=== PATIENT | female | born 1960 | race Hispanic/Latino ===

== ENCOUNTER 2020-03-13 11:50 | Inpatient (IN) | payer BC ==
[~2020-03-13 11:50] MED LIST: Iopamidol-370 76% 500 ML 1 ML ONE
[2020-03-13] MEDS ORDERED: cefTRIAXone\\ROCEPHIN 2 GM VIAL ONE (12:23)
[2020-03-13] MEDS ORDERED: Ondansetron PF 4 MG/2 ML Vial ONE (12:23)
[2020-03-13] MEDS ORDERED: Sodium Chloride 0.9% 100 ML ONE (12:24)
[2020-03-13] MEDS ORDERED: Azithromycin 500 MG VIAL ONE (12:26)
[2020-03-13] MEDS ORDERED: Dexamethasone 10 MG/ML VIAL ONE (12:26)
[2020-03-13 12:35] LABS: #Basophils 0.1 thou/uL (0.0-0.2); #Eosinphils 0.1 thou/uL (0.0-0.7); #Lymphocytes 2.8 thou/uL (1.20-3.40); #Monocytes 0.6 thou/uL (0.11-0.59); #Neutrophils 10.1 thou/uL (1.40-6.50); %Basophils 0.5 % (0.0-1.0); %Eosinophils 0.5 % (0.0-10.0); %Lymphocytes 20.2 % (21.0-51.0); %Monocytes 4.4 % (0.0-10.0); %Neutrophils 74.4 % (42.0-75.0); Hemoglobin 17.1 g/dL (12.0-16.0); Mean Corpuscular HGB CONC 34.8 g/dL (32.0-36.0); Mean Corpuscular Hemoglobin 31.9 pg (27.0-31.0); Mean Corpuscular Volume 91.5 fL (78.0-98.0); Mean Platelet Volume 9.1 fL (7.4-10.4); Platelet Count 347 thou/uL (130-400); RBC Distribution Width 11.3 % (11.5-14.5); Red Blood Cell (RBC) Count 5.37 mill/uL (4.20-5.40); White Blood Cell (WBC) Count 13.6 thou/uL (4.8-10.8)
[2020-03-13] MEDS ORDERED: Acetaminophen 500 MG TAB ONE (12:52)
[2020-03-13 12:56] LABS: ALT (SGPT) 16 U/L (8-55); AST (SGOT) 24 U/L (5-34); Albumin 3.5 g/dL (3.5-5.0); Alkaline Phosphatase 111 U/L (40-110); Anion Gap 25 mmol/L (10-20); BUN (Urea Nitrogen) 15 mg/dL (9.8-20.1); Bilirubin, Total 0.6 mg/dL (0.2-1.2); CK (CPK) 18 U/L (29-168); Calc. Creatinine Clearance 0 mL/min (70-130); Calcium 9.3 mg/dL (7.8-10.44); Carbon Dioxide 21 mmol/L (22-29); Chloride 94 mmol/L (98-107); Estimated GFR-MDRD 71; Globulin 5.4 g/dL (2.4-3.5); Glucose 354 mg/dL (70-105); Lipase 50 U/L (8-78); Protein, Total 8.9 g/dL (6.0-8.3); Sodium 136 mmol/L (136-145)
--- NOTE | 2020-03-13 12:59 | RAD ---
Frontal radiograph chest: 03/13/2020 COMPARISON: None HISTORY: Cough and shortness of breath with generalized weakness FINDINGS: Prominent extensive bilateral interstitial and alveolar/ground glass opacity. No pneumothor ax, lobar consolidation, or alveolar edema. IMPRESSION: Nonspecific diffuse interstitial and alveolar opacity/groundglass opacity. Findings are s uspicious for Covid pneumonia/atypical infectious pneumonitis in the proper clinical setting.
[2020-03-13] MEDS ORDERED: Dextrose 5% in Water 1,000 ML IV PRN (14:10)
[2020-03-13] MEDS ORDERED: Dextrose 50% Abboject 50 ML SYRINGE SLOW IVP PRN (14:10)
[2020-03-13] MEDS ORDERED: Ondansetron PF 4 MG/2 ML Vial IVP PRN (14:10)
--- NOTE | 2020-03-13 14:32 | CT ---
CT angiogram chest: 03/13/2020 COMPARISON: None HISTORY: Recent chest radiograph demonstrates findings consistent with diffuse Covid pneumonia. Cough with shortness of breath TECHNIQUE: Axial CT imaging at 2.5 mm intervals through the chest with IV contrast using CT angiogram protocol. Coronal and sagittal 3-D reformatted imaging obtained FINDINGS: Imaged upper abdomen grossly unremarkable. No pleural, pericardial, or mediastinal fluid. S ubcarinal adenopathy measures 1.5 cm. Right hilar adenopathy measures 1 cm. No evidence for acute pulmonary arterial embolism. Extensive interstitial and alveolar/ground glass opacity noted throughout both lungs. No acute osseou s abnormality. IMPRESSION: Extensive nonspecific severe interstitial and alveolar opacity throughout both lungs high ly suspicious for Covid pneumonia in the proper clinical setting. Short-term follow-up imaging of the chest following treatment advised. No evidence for pulmonary arterial embolism.
[2020-03-13 14:46] LABS: SARS-CoV-2 NAA Rapid Test DETECTED (NotDetected)
[2020-03-13 15:26] LABS: Lactic Acid 1.1 mmol/L (0.5-2.2)
[2020-03-13 15:39] LABS: Troponin I 0.026 ng/mL (< 0.028)
--- NOTE | 2020-03-13 15:45 | HP ---
REASON FOR ADMISSION: COVID-19 pneumonia, acute respiratory failure with hypoxia. HISTORY OF PRESENTING ILLNESS: The patient gives history of having dry coughing spells and feeling nauseous on Sunday. She lives with her . Her was not sick. This progressively got worse and patient also developed diarrhea. She is having perfuse watery diarrhea as soon as she eats. There was no blood in it. There was no nausea or vomiting, but patient was exhausted, having diarrhea, and did not want to eat. As her shortness of breath got worse and she found herself difficult to ambulate in the house, patient called EMS and was brought here. On arrival, patient had CT angio and chest x-ray done which showed bilateral infiltrates and a COVID-19 PCR rapid test is positive. Has had mild fevers at home. PAST MEDICAL AND SURGICAL HISTORY: History of diabetes mellitus type 2, mild hypertension, obesity. No prior surgical history per patient. CURRENT MEDICATIONS: Patient does not recall her medications and we will try to obtain from her pharmacy shortly. ALLERGIES: NO KNOWN DRUG ALLERGIES. PERSONAL HISTORY: Does not abuse alcohol or drugs. No history of smoking. FAMILY HISTORY: No history of cancer in the family. CODE STATUS: Full. Power of city attorney is her . REVIEW OF SYSTEMS: CONSTITUTIONAL: Negative for weight loss or gain, ability to conduct usual activities. SKIN: Negative for rash, itching. EYES: Negative for double vision, pain. ENT/MOUTH: Negative for nose bleeding, neck stiffness, pain, tenderness. CARDIOVASCULAR: Negative for palpitations, dyspnea on exertion, orthopnea. RESPIRATORY: Negative for shortness of breath, wheezing, cough, hemoptysis, fever or night sweats. GASTROINTESTINAL: Negative for poor appetite, abdominal pain, heartburn, nausea, vomiting, constipation, or diarrhea. GENITOURINARY: Negative for urgency, frequency, dysuria, nocturia. MUSCULOSKELETAL: Negative for pain, swelling. NEUROLOGIC/PSYCHIATRIC: Negative for anxiety, depression. ALLERGY/IMMUNOLOGIC: Negative for skin rash, bleeding tendency. PHYSICAL EXAMINATION: GENERAL: Patient is a 59-year-old female, who is currently not in any acute distress and is tolerating high-flow oxygen. VITAL SIGNS: Blood pressure 160/100, pulse 116 per minute, respiratory rate 24 per minute, temperature 98.9 degrees Fahrenheit. She was saturating 88% on room air and is 100% on high-flow. NECK: Supple. No elevated JVD. HEENT: Eyes; extraocular muscles intact. Pupils reacting to light. Oral cavity, mucous membranes are dry. No exudates or congestion. CARDIOVASCULAR: S1, S2 heard. Tachycardic. No murmur. RESPIRATORY: Air entry 1+ bilateral. Coarse rales plus bilateral. Rhonchi plus bilateral. No wheezes. ABDOMEN: Soft. Bowel sounds heard. No tenderness, rigidity, or guarding. EXTREMITIES: No peripheral edema or calf tenderness. VASCULAR: Peripheral pulses 1+ bilateral. No ischemic ulcerations or gangrene. CENTRAL NERVOUS SYSTEM: No gross focal motor deficits noted. Patient is alert, awake, oriented well. PSYCHIATRIC: Patient's mood is euthymic. No hallucinations or delusions. LABORATORY DATA: COVID-19 PCR is detected. Influenza A and B antigens are negative. CT angio chest done shows no evidence of PE. There is extensive nonspecific severe interstitial and alveolar opacity throughout both lungs, highly suspicious for COVID. BUN is 15, creatinine 0.8, serum glucose 354, lactic acid 2.3, serum bicarb 21. AST and ALT within normal limits. Alkaline phosphatase is 111. CK level is 18. BNP less than 10. Albumin 3.5. Lipase is 50. D-dimer 2.79. White count of 13, H and H 17 and 49, platelet count 347, MCV is 91 with 74% neutrophils. CLINICAL IMPRESSION AND PLAN: Patient will be admitted to medical floor for coronavirus disease 2019 pneumonia with acute respiratory failure with hypoxia. Patient has severe infiltrates bilaterally and likely might get worse. She has multiple risk factors for progression as well. Her diabetes is uncontrolled at present. She will be placed on Lantus 20 units subcu twice daily. Patient's duration of illness is around 8 days now. She will be started on remdesivir as well. She is on dexamethasone 6 mg IV daily, DuoNeb. We will also obtain stool studies to make sure she is not having any infectious diarrhea including Clostridium difficile. She has not taken any recent antibiotics as far as she knows. We will consult Dr. Sol for Infectious Disease as well. We will continue to closely monitor her on medical floor. Patient is clearly aware of her severe coronavirus disease 2019 pneumonia on the CAT scan. Job ID: [id number]
[2020-03-13] MEDS ORDERED: REMDESIVIR (EUA) 200 MG in Sodium Chloride 0.9% 250 ML 210 ML IV SCH (16:00)
[2020-03-13] MEDS ORDERED: Albuterol 200 PUFF (6.7GM INHALER) ONE (20:06)
[2020-03-13] MEDS: Albuterol 200 PUFF (6.7GM INHALER) INH SCH (20:18)
[2020-03-13 20:19] LABS: Troponin I Less than 0.010 ng/mL (< 0.028)
[2020-03-13] MEDS: Famotidine 20 MG TAB PO SCH (23:03)
[2020-03-13] MEDS: Insulin Glargine 20 UNITS in Pre-Filled Syringe SC SCH (23:03)
[2020-03-14] MEDS: Albuterol 200 PUFF (6.7GM INHALER) INH SCH ×4 (01:50→18:21)
[2020-03-14] MEDS: HumaLOG 300 UNITS/3 ML VIAL SC PRN ×3 (05:34→16:36)
[2020-03-14 06:59] LABS: #Lymphocytes 1.8 thou/uL (1.20-3.40); #Monocytes 0.4 thou/uL (0.11-0.59); #Neutrophils 5.1 thou/uL (1.40-6.50); %Eosinophils 0.3 % (0.0-10.0); %Lymphocytes 23.9 % (21.0-51.0); %Monocytes 5.7 % (0.0-10.0); %Neutrophils 70.1 % (42.0-75.0); Hemoglobin 14.9 g/dL (12.0-16.0); Mean Corpuscular HGB CONC 34.4 g/dL (32.0-36.0); Mean Corpuscular Hemoglobin 31.9 pg (27.0-31.0); Mean Corpuscular Volume 92.9 fL (78.0-98.0); Mean Platelet Volume 9.1 fL (7.4-10.4); Platelet Count 316 thou/uL (130-400); RBC Distribution Width 11.3 % (11.5-14.5); Red Blood Cell (RBC) Count 4.66 mill/uL (4.20-5.40); White Blood Cell (WBC) Count 7.3 thou/uL (4.8-10.8)
[2020-03-14 07:16] LABS: ALT (SGPT) 11 U/L (8-55); AST (SGOT) 17 U/L (5-34); Albumin 2.9 g/dL (3.5-5.0); Alkaline Phosphatase 88 U/L (40-110); Anion Gap 21 mmol/L (10-20); BUN (Urea Nitrogen) 14 mg/dL (9.8-20.1); Bilirubin, Total 0.4 mg/dL (0.2-1.2); Calc. Creatinine Clearance 99 mL/min (70-130); Calcium 8.4 mg/dL (7.8-10.44); Carbon Dioxide 16 mmol/L (22-29); Chloride 102 mmol/L (98-107); Estimated GFR-MDRD 88; Globulin 4.6 g/dL (2.4-3.5); Glucose 325 mg/dL (70-105); Potassium 4.2 mmol/L (3.5-5.1); Protein, Total 7.5 g/dL (6.0-8.3); Sodium 135 mmol/L (136-145)
[2020-03-14] MEDS: Famotidine 20 MG TAB PO SCH ×2 (08:25→19:55)
[2020-03-14] MEDS: Guaifenesin DM 100-10/5 ML UDCUP PO PRN ×2 (08:25→17:32)
[2020-03-14] MEDS: Enoxaparin Sodium 40 MG/0.4 ML SYRINGE SC SCH (08:25)
[2020-03-14] MEDS: Dexamethasone 6 MG in Sodium Chloride 0.9% 50 ML IVPB SCH (08:37)
[2020-03-14] MEDS: Insulin Glargine 20 UNITS in Pre-Filled Syringe SC SCH (08:37)
[2020-03-14] MEDS: HumaLOG 300 UNITS/3 ML VIAL SC SCH ×2 (11:55→16:12)
--- NOTE | 2020-03-14 15:51 | PDOC.HOSPP ---
- Subjective Encounter Date: 03/14/20 Encounter Time: 10:30 Subjective: Patient up in bed no complaints. - Objective Vital Signs & Weight: Vital Signs (12 hours) Temp Pulse Resp BP Pulse Ox 03/14/20 12:30 97.9 F 98 18 127/86 100 03/14/20 08:20 97.7 F 91 20 126/85 98 03/14/20 04:50 97.7 F 89 20 113/77 95 Weight Weight 153 lb 12.8 oz I&O: 03/13/20 03/14/20 03/15/20 06:59 06:59 06:59 Intake Total 500 Balance 500 Result Diagrams: 03/14/20 06:40 03/14/20 06:40 Additional Labs: Accuchecks 03/14/20 03/14/20 03/13/20 12:17 04:46 23:11 POC Glucose 378 H 344 H 343 H Hospitalist ROS - Review of Systems Cardiovascular: denies: chest pain, palpitations, orthopnea, paroxysmal noc. d yspnea, edema, light headedness, other Gastrointestinal: denies: nausea, vomiting, abdominal pain, diarrhea, constipation, melena, hematochezia, other Genitourinary: denies: dysuria, frequency, incontinence, hematuria, retention, other - Medication Medications: Active Medications Generic Name Dose Route Start Last Admin Trade Name Freq PRN Reason Stop Dose Admin Albuterol Sulfate 2 puff 03/13/20 19:00 03/14/20 12:37 Albuterol 200 Puff (6.7gm Inhaler) INH 2 puff [id number] KVNG Administration Enoxaparin Sodium 40 mg 03/14/20 09:00 03/14/20 08:25 Enoxaparin Sodium 40 Mg/0.4 Ml Syringe SC 40 mg 0900 KVNG Administration Famotidine 20 mg 03/13/20 21:00 03/14/20 08:25 Famotidine 20 Mg Tab PO 20 mg BID KVNG Administration Guaifenesin/Dextromethorphan 15 ml 03/13/20 14:10 03/14/20 08:25 Guaifenesin Dm 100-10/5 Ml Udcup PO 15 ml Q4H PRN Administration Cough Dexamethasone 6 mg/ Sodium 50.6 mls @ 100 mls/hr 03/14/20 09:00 03/14/20 0 8:37 Chloride IVPB 50.6 mls DAILY KVNG Administration Insulin Human Lispro 0 units 03/13/20 14:10 03/14/20 12:36 Humalog 300 Units/3 Ml Vial SC 10 unit .MODERATE SLIDING SC PRN Administration Moderate Correctional Scale Insulin Human Lispro 8 units 03/14/20 12:00 03/14/20 11:55 Humalog 300 Units/3 Ml Vial SC 8 unit TID-WM KVNG Administration - Exam Neck: negative: supple, symmetric, no JVD, no thyromegaly, no lymphadenopathy, no carotid bruit, JVD Heart: negative: RRR, no murmur, no gallops, no rubs, normal peripheral pulses, irregular, diminshed peripheral pulses, murmur present, II/IV, III/IV Respiratory: negative: CTAB, no wheezes, no rales, no ronchi, normal chest expansion, no tachypnea, normal percussion, rales, rhonchi, tachypneic, wheezes Gastrointestinal: negative: soft, non-tender, non-distended, normal bowel sounds , no palpable masses, no hepatomegaly, no splenomegaly, no bruit, no guarding, no rigidity, tender to palpation, distended, diminished bowl sounds, voluntary guarding Hosp A/P (1) Acute respiratory failure with hypoxia Code(s): J96.01 - ACUTE RESPIRATORY FAILURE WITH HYPOXIA Status: Acute (2) COVID-19 Code(s): U07.1 - COVID-19 Status: Acute (3) Diabetes Code(s): E11.9 - TYPE 2 DIABETES MELLITUS WITHOUT COMPLICATIONS Status: Acute - Plan Patient has no diarrhea. Currently on high flow. We will continue remdesivir and steroids. She is on DVT prophylaxis. Patient's insulin dose increase.
[2020-03-14] MEDS: REMDESIVIR (EUA) 100 MG in Sodium Chloride 0.9% 250 ML 230 ML IV SCH (16:12)
--- NOTE | 2020-03-14 16:52 | CON ---
DATE OF CONSULTATION: 03/14/2020 REASON FOR CONSULTATION: COVID pneumonia. HISTORY OF PRESENT ILLNESS: A 59-year-old history of type 2 diabetes, hypertension with COVID-19, the illness developed 8 days before admission and gradually became worse. She had some diarrhea which resolved and anosmia. No headaches. No abdominal pain. No genitourinary symptoms. Initial findings; BP 150/99, pulse 130, temperature 98.9, O2 saturation 88 on room air. She appeared in distress, uncomfortable, alert. Exam showed tachycardia. Lungs were described as clear. Abdomen is soft, not tender. Initial findings included also sodium of 136, creatinine 0.83, glucose 354, lactic acid 2.3, CK 18, and SARS-CoV detected PCR. Blood cultures negative. Urine culture and influenza test negative. Chest x- ray with diffuse bilateral infiltrates. CT scan confirmed that she is receiving Decadron and remdesivir, enoxaparin prophylactic dose. Feeling a little better, still on high-flow nasal cannula. No headaches. Mild to moderate shortness of breath. Unable to eat. Voiding without difficulty. PAST MEDICAL HISTORY: Type 2 diabetes, hypertension. PAST SURGICAL HISTORY: Negative. SOCIAL HISTORY: Lives in the area with family. Never smoker. ALLERGIES: NONE. MEDICATIONS: In addition to remdesivir, Decadron, enoxaparin, she is on p.r.n. medications, insulin and inhalers. PHYSICAL EXAMINATION: VITAL SIGNS: Normal. She is satting at 100% with 40 L/minute flow rate and high-flow nasal cannula O2. SKIN: Normal. There is no lymphadenopathy. HEENT: Ocular movements conjugate. Oral cavity normal. LUNGS: symmetric breath sounds without obvious crackles or wheezing. HEART: S1 and S2, regular rate. No S3 or S4. ABDOMEN: Soft, not distended or tender. No ascites. No bladder distention. EXTREMITIES: No joint inflammatory activity. No edema. Moves all extremities equally. Pulses 1+ in dorsalis pedis. NEURO: Nonfocal. LABORATORY DATA: Followup white cell count 7.3, hemoglobin 14, platelets 316. D-dimer 2.79. ASSESSMENT: Diabetes type 2, hypertension, and moderate to severe COVID pneumonia. Quite pronounced bilateral diffuse infiltrates and high-flow nasal cannula. Continue remdesivir, Decadron, and enoxaparin prophylaxis. Daily marker monitoring. Job ID: [id number] [facility]
[2020-03-14] MEDS: Insulin Glargine 25 UNITS in Pre-Filled Syringe 1 EACH SC SCH (19:55)
[2020-03-14] MEDS: Acetaminophen 325 MG TAB PO PRN (19:55)
[2020-03-14] MEDS ORDERED: FLU VACC QS2020-21(6MOS UP)/PF 60 MCG/0.5 ML SYRINGE IM ONE (21:00)
[2020-03-15] MEDS: Albuterol 200 PUFF (6.7GM INHALER) INH SCH ×4 (01:37→19:42)
[2020-03-15] MEDS: HumaLOG 300 UNITS/3 ML VIAL SC PRN ×4 (04:45→19:47)
[2020-03-15 07:52] LABS: ALT (SGPT) 10 U/L (8-55); AST (SGOT) 11 U/L (5-34); Albumin 2.8 g/dL (3.5-5.0); Alkaline Phosphatase 101 U/L (40-110); Anion Gap 12 mmol/L (10-20); BUN (Urea Nitrogen) 17 mg/dL (9.8-20.1); Bilirubin, Direct 0.2 mg/dL (0.1-0.3); Bilirubin, Total 0.4 mg/dL (0.2-1.2); CRP (Inflammatory) 1.97 mg/dL (= or < 0.5); Calc. Creatinine Clearance 102 mL/min (70-130); Calcium 8.7 mg/dL (7.8-10.44); Carbon Dioxide 28 mmol/L (22-29); Chloride 103 mmol/L (98-107); Estimated GFR-MDRD Greater than 90; Glucose 322 mg/dL (70-105); Potassium 3.5 mmol/L (3.5-5.1); Protein, Total 7.1 g/dL (6.0-8.3); Sodium 139 mmol/L (136-145)
[2020-03-15] MEDS: HumaLOG 300 UNITS/3 ML VIAL SC SCH ×3 (08:43→16:46)
[2020-03-15] MEDS: Famotidine 20 MG TAB PO SCH ×2 (08:46→20:03)
[2020-03-15] MEDS: Insulin Glargine 25 UNITS in Pre-Filled Syringe 1 EACH SC SCH ×2 (08:48→20:03)
[2020-03-15] MEDS: Dexamethasone 6 MG in Sodium Chloride 0.9% 50 ML IVPB SCH (08:49)
[2020-03-15] MEDS: Enoxaparin Sodium 40 MG/0.4 ML SYRINGE SC SCH (10:55)
--- NOTE | 2020-03-15 14:07 | PRG ---
DATE OF SERVICE: 03/15/2020 SUBJECTIVE: The patient ate 100% of her breakfast and is feeling somewhat better. Still a little bit weak when she walks, but has a steady gait. [id number] dyspnea only with exertion. Still coughing intermittently. No abdominal pain. No diarrhea. Voiding without difficulty. OBJECTIVE: VITAL SIGNS: Temperature has been normal, saturating better with no downgrade in her O2 supplementation requirements to 3 L nasal cannula from high-flow nasal cannula. She is saturating 96% to 98%. Otherwise, vital signs are normal. She is not tachycardic and she is not tachypneic. LUNGS: Clear. HEART: S1 and S2. Regular rate. ABDOMEN: Soft, not distended. : No bladder distention. NEUROLOGIC: Moves all extremities equally. LABORATORY DATA: White cell count has not been repeated. D-dimer is down to 2.26. Ferritin is 1358. C-reactive protein first time measured 1.97. ASSESSMENT AND DISCUSSION: Type 2 diabetes with [id number] COVID pneumonia with early improvement on remdesivir, Decadron, Lovenox, and oxygen supplementation. Continue current management. Job ID: [id number]
--- NOTE | 2020-03-15 15:09 | PDOC.HOSPP ---
- Subjective Encounter Date: 03/15/20 Encounter Time: 10:30 Subjective: Up in bed currently on nasal cannula - Objective Vital Signs & Weight: Vital Signs (12 hours) Temp Pulse Resp BP Pulse Ox 03/15/20 12:31 97.4 F L 83 18 120/77 96 03/15/20 09:07 97.4 F L 72 18 128/79 98 03/15/20 09:00 98 Weight Weight 153 lb 12.8 oz I&O: 03/14/20 03/15/20 03/16/20 06:59 06:59 06:59 Intake Total 500 1120 Balance 500 1120 Result Diagrams: 03/14/20 06:40 03/15/20 06:48 Additional Labs: Accuchecks 03/15/20 03/15/20 03/14/20 12:01 04:41 19:16 POC Glucose 259 H 378 H 361 H 03/14/20 16:26 POC Glucose 376 H Hospitalist ROS - Review of Systems Respiratory: reports: shortness of breath Cardiovascular: denies: chest pain, palpitations, orthopnea, paroxysmal noc. dyspnea, edema, light headedness, other Gastrointestinal: denies: nausea, vomiting, abdominal pain, diarrhea, constipation, melena, hematochezia, other Genitourinary: denies: dysuria, frequency, incontinence, hematuria, retention, other - Medication Medications: Active Medications Generic Name Dose Route Start Last Admin Trade Name Freq PRN Reason Stop Dose Admin Acetaminophen 650 mg 03/13/20 14:10 03/14/20 19:55 Acetaminophen 325 Mg Tab PO 650 mg Q4H PRN Administration Headache/Fever/Mild Pain (1-3) Albuterol Sulfate 2 puff 03/13/20 19:00 03/15/20 12:42 Albuterol 200 Puff (6.7gm Inhaler) INH 2 puff [id number] KVNG Administration Enoxaparin Sodium 40 mg 03/14/20 09:00 03/15/20 10:55 Enoxaparin Sodium 40 Mg/0.4 Ml Syringe SC 40 mg 0900 KVNG Administration Famotidine 20 mg 03/13/20 21:00 03/15/20 08:46 Famotidine 20 Mg Tab PO 20 mg BID KVNG Administration Guaifenesin/Dextromethorphan 15 ml 03/13/20 14:10 03/14/20 17:32 Guaifenesin Dm 100-10/5 Ml Udcup PO 15 ml Q4H PRN Administration Cough Dexamethasone 6 mg/ Sodium 50.6 mls @ 100 mls/hr 03/14/20 09:00 03/15/20 08:49 Chloride IVPB 50.6 mls DAILY KVNG Administration Remdesivir 100 mg/ Sodium 250 mls @ 250 mls/hr 03/14/20 16:00 03/14/20 16:12 Chloride IV 03/17/20 16:59 250 mls 1600 KVNG Administration Insulin Glargine 25 units/ 0.25 mls @ 0 mls/hr 03/15/20 09:00 03/15/20 08:48 Miscellaneous Medication SC 0.25 mls QAM KVNG Administration Insulin Glargine 25 units/ 0.25 mls @ 0 mls/hr 03/14/20 21:00 03/14/20 19:55 Miscellaneous Medication SC 0.25 mls HS KVNG Administration Insulin Human Lispro 0 units 03/13/20 14:10 03/15/20 12:03 Humalog 300 Units/3 Ml Vial SC 6 unit .MODERATE SLIDING SC PRN Administration Moderate Correctional Scale Insulin Human Lispro 8 units 03/14/20 12:00 03/15/20 11:57 Humalog 300 Units/3 Ml Vial SC 8 unit TID-WM KVNG Administration Sodium Chloride 10 ml 03/14/20 21:00 03/15/20 08:49 Flush - Normal Saline 10 Ml Syringe IVF 10 ml Q12HR KVNG Administration - Exam Neck: negative: supple, symmetric, no JVD, no thyromegaly, no lymphadenopathy, no carotid bruit, JVD Heart: negative: RRR, no murmur, no gallops, no rubs, normal peripheral pulses, irregular, diminshed peripheral pulses, murmur present, II/IV, III/IV Respiratory: negative: CTAB, no wheezes, no rales, no ronchi, normal chest expansion, no tachypnea, normal percussion, rales, rhonchi, tachypneic, wheezes Hosp A/P (1) Acute respiratory failure with hypoxia Code(s): J96.01 - ACUTE RESPIRATORY FAILURE WITH HYPOXIA Status: Acute (2) COVID-19 Code(s): U07.1 - COVID-19 Status: Acute (3) Diabetes Code(s): E11.9 - TYPE 2 DIABETES MELLITUS WITHOUT COMPLICATIONS Status: Acute - Plan Patient has no diarrhea. Currently on high flow. We will continue remdesivir and steroids. She is on DVT prophylaxis. Patient's insulin dose increase. 03/15 we will continue remdesivir and steroids. Patient has been off the high flow via nasal cannula will monitor. She is able to tolerate overall and has been not having any diarrhea.
[2020-03-15] MEDS: REMDESIVIR (EUA) 100 MG in Sodium Chloride 0.9% 250 ML 230 ML IV SCH (15:44)
[2020-03-16] MEDS: Albuterol 200 PUFF (6.7GM INHALER) INH SCH ×4 (01:28→18:28)
[2020-03-16] MEDS: HumaLOG 300 UNITS/3 ML VIAL SC PRN ×3 (05:32→16:50)
[2020-03-16 07:00] LABS: ALT (SGPT) 9 U/L (8-55); AST (SGOT) 19 U/L (5-34); Albumin 2.5 g/dL (3.5-5.0); Alkaline Phosphatase 85 U/L (40-110); Anion Gap 16 mmol/L (10-20); BUN (Urea Nitrogen) 18 mg/dL (9.8-20.1); Bilirubin, Direct 0.1 mg/dL (0.1-0.3); Bilirubin, Total 0.3 mg/dL (0.2-1.2); CRP (Inflammatory) 0.89 mg/dL (= or < 0.5); Calc. Creatinine Clearance 114 mL/min (70-130); Calcium 8.4 mg/dL (7.8-10.44); Carbon Dioxide 23 mmol/L (22-29); Chloride 105 mmol/L (98-107); Estimated GFR-MDRD Greater than 90; Glucose 215 mg/dL (70-105); Potassium 3.6 mmol/L (3.5-5.1); Protein, Total 6.7 g/dL (6.0-8.3); Sodium 140 mmol/L (136-145)
[2020-03-16] MEDS: HumaLOG 300 UNITS/3 ML VIAL SC SCH ×3 (10:35→16:49)
[2020-03-16] MEDS: Famotidine 20 MG TAB PO SCH ×2 (10:36→21:44)
[2020-03-16] MEDS: Insulin Glargine 25 UNITS in Pre-Filled Syringe 1 EACH SC SCH ×2 (10:37→21:47)
[2020-03-16] MEDS: Dexamethasone 6 MG in Sodium Chloride 0.9% 50 ML IVPB SCH (10:37)
[2020-03-16] MEDS: Enoxaparin Sodium 40 MG/0.4 ML SYRINGE SC SCH (10:40)
--- NOTE | 2020-03-16 13:40 | PDOC.HOSPP ---
- Subjective Encounter Date: 03/16/20 Encounter Time: 11:45 Subjective: Patient up in bed no complaints. - Objective Vital Signs & Weight: Vital Signs (12 hours) Temp Pulse Resp BP Pulse Ox Pulse Ox Pulse Ox 03/16/20 12:00 98.5 F 77 20 118/75 97 03/16/20 10:13 90 L 93 L 03/16/20 08:00 97.6 F 70 22 H 136/83 98 Pulse Ox 03/16/20 12:00 03/16/20 10:13 92 L 03/16/20 08:00 Weight Weight 153 lb 12.8 oz I&O: 03/15/20 03/16/20 03/17/20 06:59 06:59 06:59 Intake Total 1120 1290 Balance 1120 1290 Result Diagrams: 03/14/20 06:40 03/16/20 06:07 Additional Labs: Accuchecks 03/16/20 03/15/20 03/15/20 05:20 19:46 15:49 POC Glucose 226 H 370 H 405 H Hospitalist ROS - Review of Systems Cardiovascular: denies: chest pain, palpitations, orthopnea, paroxysmal noc. dy spnea, edema, light headedness, other Gastrointestinal: denies: nausea, vomiting, abdominal pain, diarrhea, constipation, melena, hematochezia, other Genitourinary: denies: dysuria, frequency, incontinence, hematuria, retention, other - Medication Medications: Active Medications Generic Name Dose Route Start Last Admin Trade Name Freq PRN Reason Stop Dose Admin Acetaminophen 650 mg 03/13/20 14:10 03/14/20 19:55 Acetaminophen 325 Mg Tab PO 650 mg Q4H PRN Administration Headache/Fever/Mild Pain (1-3) Albuterol Sulfate 2 puff 03/13/20 19:00 03/16/20 06:44 Albuterol 200 Puff (6.7gm Inhaler) INH 2 puff [id number] KVNG Administration Enoxaparin Sodium 40 mg 03/14/20 09:00 03/16/20 10:40 Enoxaparin Sodium 40 Mg/0.4 Ml Syringe SC 40 mg 0900 KVNG Administration Famotidine 20 mg 03/13/20 21:00 03/16/20 10:36 Famotidine 20 Mg Tab PO 20 mg BID KVNG Administration Guaifenesin/Dextromethorphan 15 ml 03/13/20 14:10 03/14/20 17:32 Guaifenesin Dm 100-10/5 Ml Udcup PO 15 ml Q4H PRN Administration Cough Dexamethasone 6 mg/ Sodium 50.6 mls @ 100 mls/hr 03/14/20 09:00 03/16/20 10:37 Chloride IVPB 50.6 mls DAILY KVNG Administration Remdesivir 100 mg/ Sodium 250 mls @ 250 mls/hr 03/14/20 16:00 03/15/20 15:44 Chloride IV 03/17/20 16:59 250 mls 1600 KVNG Administration Insulin Glargine 25 units/ 0.25 mls @ 0 mls/hr 03/15/20 09:00 03/16/20 10:37 Miscellaneous Medication SC 0.25 mls QAM KVNG Administration Insulin Glargine 25 units/ 0.25 mls @ 0 mls/hr 03/14/20 21:00 03/15/20 20:03 Miscellaneous Medication SC 0.25 mls HS KVNG Administration Insulin Human Lispro 0 units 03/13/20 14:10 03/16/20 13:13 Humalog 300 Units/3 Ml Vial SC 4 unit .MODERATE SLIDING SC PRN Administration Moderate Correctional Scale Insulin Human Lispro 0 units 03/13/20 14:10 03/15/20 19:47 Humalog 300 Units/3 Ml Vial SC 5 unit .BEDTIME SLIDING SC PRN Administration Bedtime Correctional Scale Insulin Human Lispro 8 units 03/14/20 12:00 03/16/20 13:13 Humalog 300 Units/3 Ml Vial SC 8 unit TID-WM KVNG Administration Sodium Chloride 10 ml 03/14/20 21:00 03/16/20 10:38 Flush - Normal Saline 10 Ml Syringe IVF 10 ml Q12HR KVNG Administration - Exam Heart: negative: RRR, no murmur, no gallops, no rubs, normal peripheral pulses, irregular, diminshed peripheral pulses, murmur present, II/IV, III/IV Respiratory: negative: CTAB, no wheezes, no rales, no ronchi, normal chest expansion, no tachypnea, normal percussion, rales, rhonchi, tachypneic, wheezes Gastrointestinal: negative: soft, non-tender, non-distended, normal bowel sounds, no palpable masses, no hepatomegaly, no splenomegaly, no bruit, no guarding, no rigidity, tender to palpation, distended, diminished bowl sounds, voluntary guarding Extremities: negative: no cyanosis, no clubbing, no edema, 1+ LE edema, 2+ LE edema, clubbing Hosp A/P (1) Acute respiratory failure with hypoxia Code(s): J96.01 - ACUTE RESPIRATORY FAILURE WITH HYPOXIA Status: Acute (2) COVID-19 Code(s): U07.1 - COVID-19 Status: Acute (3) Diabetes Code(s): E11.9 - TYPE 2 DIABETES MELLITUS WITHOUT COMPLICATIONS Status: Acute - Plan Patient has no diarrhea. Currently on high flow. We will continue remdesivir and steroids. She is on DVT prophylaxis. Patient's insulin dose increase. 03/15 we will continue remdesivir and steroids. Patient has been off the high flow via nasal cannula will monitor. She is able to tolerate overall and has been not having any diarrhea. 03/16 patient will finish her remdesivir tomorrow. Asked nurse to ambulate the patient to see how she does. We will need oxygen for home. We will continue steroids and DVT prophylaxis.
[2020-03-16] MEDS: REMDESIVIR (EUA) 100 MG in Sodium Chloride 0.9% 250 ML 230 ML IV SCH (16:49)
[2020-03-16] MEDS: Acetaminophen 325 MG TAB PO PRN (21:50)
[2020-03-16] MEDS: Guaifenesin DM 100-10/5 ML UDCUP PO PRN (23:33)
[2020-03-17] MEDS ORDERED: Ibuprofen 200 MG TAB PO SCH (01:30)
[2020-03-17] MEDS: Albuterol 200 PUFF (6.7GM INHALER) INH SCH ×4 (02:08→17:58)
[2020-03-17] MEDS: HumaLOG 300 UNITS/3 ML VIAL SC PRN ×3 (06:44→20:07)
[2020-03-17 07:37] LABS: ALT (SGPT) 12 U/L (8-55); AST (SGOT) 16 U/L (5-34); Albumin 2.7 g/dL (3.5-5.0); Alkaline Phosphatase 94 U/L (40-110); Anion Gap 13 mmol/L (10-20); BUN (Urea Nitrogen) 14 mg/dL (9.8-20.1); Bilirubin, Direct 0.2 mg/dL (0.1-0.3); Bilirubin, Total 0.4 mg/dL (0.2-1.2); Calc. Creatinine Clearance 112 mL/min (70-130); Carbon Dioxide 30 mmol/L (22-29); Chloride 101 mmol/L (98-107); Estimated GFR-MDRD Greater than 90; Glucose 172 mg/dL (70-105); Potassium 3.2 mmol/L (3.5-5.1); Protein, Total 6.4 g/dL (6.0-8.3); Sodium 141 mmol/L (136-145)
[2020-03-17] MEDS: HumaLOG 300 UNITS/3 ML VIAL SC SCH ×3 (07:59→16:25)
[2020-03-17] MEDS: Enoxaparin Sodium 40 MG/0.4 ML SYRINGE SC SCH (08:00)
[2020-03-17] MEDS: Famotidine 20 MG TAB PO SCH ×2 (08:00→20:03)
[2020-03-17] MEDS ORDERED: hydrALAZINE 20 MG/ML VIAL SLOW IVP PRN (09:24)
[2020-03-17] MEDS ORDERED: Potassium Chloride 20 MEQ TAB PO SCH (09:30)
[2020-03-17] MEDS: Dexamethasone 6 MG in Sodium Chloride 0.9% 50 ML IVPB SCH (09:57)
[2020-03-17] MEDS: Insulin Glargine 25 UNITS in Pre-Filled Syringe 1 EACH SC SCH ×2 (09:57→20:04)
--- NOTE | 2020-03-17 15:19 | PDOC.HOSPP ---
- Subjective Encounter Date: 03/17/20 Encounter Time: 10:30 Subjective: Patient up in bed feels better today. Nurse ambulated the patient she dropped her oxygen saturations significantly without oxygen will require oxygen on discharge - Objective Vital Signs & Weight: Vital Signs (12 hours) Temp Pulse Resp BP BP Pulse Ox 03/17/20 11:58 97.6 F 98 16 122/85 98 03/17/20 08:00 140/92 H 94 L 03/17/20 07:19 98.5 F 69 16 167/102 H 100 03/17/20 04:00 97.8 F 65 18 157/97 H 98 Weight Weight 153 lb 12.8 oz I&O: 03/16/20 03/17/20 03/18/20 06:59 06:59 06:59 Intake Total 1290 2400 Output Total 700 Balance 1290 1700 Result Diagrams: 03/14/20 06:40 03/17/20 07:08 Additional Labs: Accuchecks 03/17/20 03/17/20 03/16/20 11:55 06:39 21:52 POC Glucose 155 H 187 H 302 H 03/16/20 03/16/20 15:51 11:59 POC Glucose 346 H 226 H Hospitalist ROS - Review of Systems Cardiovascular: denies: chest pain, palpitations, orthopnea, paroxysmal noc. dyspnea, edema, light headedness, other Gastrointestinal: denies: nausea, vomiting, abdominal pain, diarrhea, constipation, melena, hematochezia, other Genitourinary: denies: dysuria, frequency, incontinence, hematuria, retention, other - Medication Medications: Active Medications Generic Name Dose Route Start Last Admin Trade Name Tobinq PRN Reason Stop Dose Admin Acetaminophen 650 mg 03/13/20 14:10 03/16/20 21:50 Acetaminophen 325 Mg Tab PO 650 mg Q4H PRN Administration Headache/Fever/Mild Pain (1-3) Albuterol Sulfate 2 puff 03/13/20 19:00 03/17/20 12:46 Albuterol 200 Puff (6.7gm Inhaler) INH 2 puff Q0GT-OL KVNG Administration Enoxaparin Sodium 40 mg 03/14/20 09:00 03/17/20 08:00 Enoxaparin Sodium 40 Mg/0.4 Ml Syringe SC 40 mg 0900 KVNG Administration Famotidine 20 mg 03/13/20 21:00 03/17/20 08:00 Famotidine 20 Mg Tab PO 20 mg BID KVNG Administration Guaifenesin/Dextromethorphan 15 ml 03/13/20 14:10 03/16/20 23:33 Guaifenesin Dm 100-10/5 Ml Udcup PO 15 ml Q4H PRN Administration Cough Dexamethasone 6 mg/ Sodium 50.6 mls @ 100 mls/hr 03/14/20 09:00 03/17/20 09:57 Chloride IVPB 50.6 mls DAILY KVNG Administration Remdesivir 100 mg/ Sodium 250 mls @ 250 mls/hr 03/14/20 16:00 03/16/20 16:49 Chloride IV 03/17/20 16:59 250 mls 1600 KVNG Administration Insulin Glargine 25 units/ 0.25 mls @ 0 mls/hr 03/15/20 09:00 03/17/20 09:57 Miscellaneous Medication SC 0.25 mls QAM KVNG Administration Insulin Glargine 25 units/ 0.25 mls @ 0 mls/hr 03/14/20 21:00 03/16/20 21:47 Miscellaneous Medication SC 0.25 mls HS KVNG Administration Insulin Human Lispro 0 units 03/13/20 14:10 03/17/20 06:44 Humalog 300 Units/3 Ml Vial SC 2 unit .MODERATE SLIDING SC PRN Administration Moderate Correctional Scale Insulin Human Lispro 0 units 03/13/20 14:10 03/15/20 19:47 Humalog 300 Units/3 Ml Vial SC 5 unit .BEDTIME SLIDING SC PRN Administration Bedtime Correctional Scale Insulin Human Lispro 8 units 03/14/20 12:00 03/17/20 12:45 Humalog 300 Units/3 Ml Vial SC 8 unit TID-WM KVNG Administration Sodium Chloride 10 ml 03/14/20 21:00 03/17/20 08:01 Flush - Normal Saline 10 Ml Syringe IVF 10 ml Q12HR KVNG Administration - Exam Neck: negative: supple, symmetric, no JVD, no thyromegaly, no lymphadenopathy, no carotid bruit, JVD Heart: negative: RRR, no murmur, no gallops, no rubs, normal peripheral pulses, irregular, diminshed peripheral pulses, murmur present, II/IV, III/IV Respiratory: negative: CTAB, no wheezes, no rales, no ronchi, normal chest expansion, no tachypnea, normal percussion, rales, rhonchi, tachypneic, wheezes Gastrointestinal: negative: soft, non-tender, non-distended, normal bowel sounds, no palpable masses, no hepatomegaly, no splenomegaly, no bruit, no guarding, no rigidity, tender to palpation, distended, diminished bowl sounds, voluntary guarding Hosp A/P (1) Acute respiratory failure with hypoxia Code(s): J96.01 - ACUTE RESPIRATORY FAILURE WITH HYPOXIA Status: Acute (2) COVID-19 Code(s): U07.1 - COVID-19 Status: Acute (3) Diabetes Code(s): E11.9 - TYPE 2 DIABETES MELLITUS WITHOUT COMPLICATIONS Status: Acute - Plan Patient has no diarrhea. Currently on high flow. We will continue remdesivir and steroids. She is on DVT prophylaxis. Patient's insulin dose increase. 03/15 we will continue remdesivir and steroids. Patient has been off the high flow via nasal cannula will monitor. She is able to tolerate overall and has been not having any diarrhea. 03/16 patient will finish her remdesivir tomorrow. Asked nurse to ambulate the patient to see how she does. We will need oxygen for home. We will continue steroids and DVT prophylaxis. 03/17 possible discharge home in the a.m. Today was her last day of remdesivir. Will check labs in a.m. She will require oxygen Case management aware.
[2020-03-17] MEDS ORDERED: Electrolyte Replacement Protocol FS SCH (15:30)
--- NOTE | 2020-03-17 16:08 | PRG ---
DATE OF SERVICE: 03/17/2020 SUBJECTIVE: Feels a little better. Still with a sensation of tightness in the chest when she coughs. No abdominal pain. No neurological symptoms. OBJECTIVE: VITAL SIGNS: She has been afebrile, breathing at 16 times a minute, pulse 98, O2 saturations ranging from 94 to 98, supplementation down to 3 L nasal cannula. After brief exercise, saturations dropped from 98 to 94, but come back to 98 to 100 quickly. LUNGS: With a few scattered crackles. No wheezing. HEART: S1 and S2, regular rate. ABDOMEN: Soft, not distended. NEUROLOGIC: Nonfocal. LABORATORY DATA: Ferritin and CRP are decreasing, so is the D-dimer. Finishing up her remdesivir, continues on Decadron and enoxaparin prophylaxis. ASSESSMENT AND DISCUSSION: Type 2 diabetes, [id number] COVID pneumonia, still continuing improvement, the patient is not desaturating a lot when she exercises, which is a good prognostic sign. Job ID: [id number]
[2020-03-17] MEDS: REMDESIVIR (EUA) 100 MG in Sodium Chloride 0.9% 250 ML 230 ML IV SCH (16:25)
[2020-03-17] MEDS: Lisinopril 10 MG TAB PO SCH (20:04)
[2020-03-18] MEDS: Albuterol 200 PUFF (6.7GM INHALER) INH SCH ×3 (00:03→15:41)
[2020-03-18] MEDS: HumaLOG 300 UNITS/3 ML VIAL SC PRN (05:36)
[2020-03-18 05:55] LABS: ALT (SGPT) 13 U/L (8-55); AST (SGOT) 18 U/L (5-34); Albumin 2.8 g/dL (3.5-5.0); Alkaline Phosphatase 97 U/L (40-110); Anion Gap 14 mmol/L (10-20); BUN (Urea Nitrogen) 15 mg/dL (9.8-20.1); Bilirubin, Direct 0.2 mg/dL (0.1-0.3); Bilirubin, Total 0.3 mg/dL (0.2-1.2); CRP (Inflammatory) Less than 0.50 mg/dL (= or < 0.5); Calc. Creatinine Clearance 112 mL/min (70-130); Calcium 8.7 mg/dL (7.8-10.44); Carbon Dioxide 28 mmol/L (22-29); Chloride 103 mmol/L (98-107); Estimated GFR-MDRD Greater than 90; Glucose 252 mg/dL (70-105); Protein, Total 6.6 g/dL (6.0-8.3); Sodium 141 mmol/L (136-145)
[2020-03-18] MEDS: Insulin Glargine 25 UNITS in Pre-Filled Syringe 1 EACH SC SCH (09:53)
[2020-03-18] MEDS: Famotidine 20 MG TAB PO SCH (09:53)
[2020-03-18] MEDS: Enoxaparin Sodium 40 MG/0.4 ML SYRINGE SC SCH (09:53)
[2020-03-18] MEDS: Lisinopril 10 MG TAB PO SCH ×2 (09:53→10:15)
[2020-03-18] MEDS: Dexamethasone 6 MG in Sodium Chloride 0.9% 50 ML IVPB SCH (09:54)
[2020-03-18 10:21] VITALS: BP 100/71
[2020-03-18] MEDS: HumaLOG 300 UNITS/3 ML VIAL SC SCH ×2 (10:38→12:39)
[2020-03-18 13:16] VITALS: TEMP 98.5
--- NOTE | 2020-03-19 03:24 | DIS ---
DATE OF ADMISSION: 03/13/2020 DATE OF DISCHARGE: 03/18/2020 DISCHARGE DIAGNOSES: As of the followin. COVID positive. 2. Acute hypoxic respiratory failure. 3. Diabetes. HOSPITAL COURSE: Patient is a 59-year-old female, who initially presented to the hospital with significant amount of diarrhea and also was noted to have shortness of breath and was found to be hypoxic. At this time, she was started on remdesivir. Her diarrhea improved. She also had significantly elevated blood sugars. She is a diabetic, however, apparently does not look like she takes anything at home. At this time, she was encouraged to follow up with her primary care doctor, especially for her diabetes and she was put on metformin while on discharge. She was also seen by Infectious Disease. She had a CTA done, which indicated alveolar opacity throughout both lungs, suspicion for COVID pneumonia. No evidence of pulmonary embolism was noted. HOME MEDICATIONS: Were as of the followin. Metformin 500 mg b.i.d. I have instructed her, if she starts having diarrhea, to take it once a day and also to check her blood sugars and to please follow up with her primary. 2. Lisinopril 10 mg daily, this was twice a day. I have decreased it due to low blood pressure. 3. Pepcid 20 mg twice a day. 4. Dexamethasone 6 mg daily. 5. Ciprofloxacin 7.5 b.i.d., to the left ear. 6. Aspirin 325 daily, this is for DVT prophylaxis. 7. Albuterol as needed. PHYSICAL EXAMINATION: VITAL SIGNS: Patient's vital signs on discharge; temperature 98.5, heart rate 94, respiratory rate 19, saturation 98% on 3L, blood pressure 100/71. GENERAL: She is awake, alert, and oriented x3. Does not appear in distress. CV: S1, S2 present. No murmurs, rubs, or gallops. Again, she will be discharged home. She will follow up with her primary. I have asked her to check her blood pressure and check her sugars at home. Job ID: [id number]
--- NOTE | 2020-03-20 14:52 | EKG ---
Test Reason : DYSPNEA Blood Pressure : / mmHG Vent. Rate : 120 BPM Atrial Rate : 120 BPM P-R Int : 132 ms QRS Dur : 092 ms QT Int : 322 ms P-R-T Axes : 027 005 249 degrees QTc Int : 455 ms Sinus tachycardia Possible Left atrial enlargement Left ventricular hypertrophy with repolarization abnormality Abnormal ECG Confirmed by MOE REAGAN, RANDY ([id number]), scientific publications editor JAM JEFFRIES ([id number]) on 03/20/2020 2:52:00 PM Referred By: Confirmed By:RANDY ROSA MD
== END 2020-03-18 16:56 | disposition home or self-care (01) | DRG 177 ==
LOC: ERS 11:50 → ERHOLD 14:54 → T4-A 22:19
PROVIDERS: ADMIT Internal Medicine; ATTEND Internal Medicine
PROC: 8E0ZXY6 Isolation (ICD-10-PCS; principal; 2020-03-13)
PROC: XW033E5 Introduction of Remdesivir Anti-infective into Peripheral Vein, Percutaneous Approach, New Technology Group 5 (ICD-10-PCS; 2020-03-14)
DX: U07.1 COVID-19 (principal); J12.89 Other viral pneumonia; J96.01 Acute respiratory failure with hypoxia; I10 Essential (primary) hypertension; E66.9 Obesity, unspecified; R19.7 Diarrhea, unspecified; E11.65 Type 2 diabetes mellitus with hyperglycemia; Z68.30 Body mass index [BMI] 30.0-30.9, adult; Z79.82 Long term (current) use of aspirin; Z79.84 Long term (current) use of oral hypoglycemic drugs
CPT/HCPCS: 36415; 36416; 71045; 71275; 80048; 80053; 80076; 82550; 82728; 83605; 83690; 83880; 84484; 85025; 85379; 86140; 87040; 87045; 87046; 87086; 87427; 87449; 87804; 93005; 96365; 96366; 96375; J0456; J0696; J1100; J1650; J1815; J2405; J3490; J7050; Q9967; U0002